=== PATIENT | female | born 1975 | race Caucasian/White ===

== ENCOUNTER 2021-02-05 09:03 | Outpatient (REF) | payer OTHER, SELFPAY ==
[2021-02-07 21:57] LABS: HPV mRNA E6/E7 rflx Not Detected (Not Detected)
== END 2021-02-05 09:04 | disposition home or self-care (01) ==
LOC: HO.LAB 09:03
PROVIDERS: Visit Provider Advanced Practice Midwife
DX: Z01.419 Encounter for gynecological examination (general) (routine) without abnormal findings (principal); Z11.51 Encounter for screening for human papillomavirus (HPV)
CPT/HCPCS: 87624; 88142

== ENCOUNTER 2021-04-23 15:44 | Outpatient (REF) | payer OTHER, SELFPAY ==
--- NOTE | ~2021-04-23 | MM_ITS ---
EXAMINATION: MM SCREENING DIGITAL BREAST TOMOSYNTHESIS, BILATERAL CLINICAL INFORMATION: Screening. Asymptomatic. The lifetime risk of breast cancer based on the Tyrer-Cuzick Model is 12%. COMPARISON: Mammography: 03/23/2019, 06/22/2016, 03/09/2014 TECHNIQUE: Digital breast tomosynthesis is performed in both the craniocaudal and mediolateral oblique views along with computer-aided detection (CAD). Synthesized 2D images are generated from the tomosynthesis. FINDINGS: The breasts are heterogeneously dense, which may obscure small masses (ACR BI-RADS breast composition Category c). The right breast parenchymal pattern is similar to prior studies. No developing density or interval mass or architectural abnormality. Neither breast shows abnormal calcifications. The axilla and skin contours are unremarkable. The left CC view has an asymmetric density mid inner quadrant without correlate on MLO, possibly summation artifact. Patient will be recalled for additional imaging. MM/MM tomosynthesis screening BI IMPRESSION: 1. Left: Asymmetric density mid inner quadrant on CC view, possibly summation artifact. 2. Right: No mammographic evidence of malignancy. ASSESSMENT: BI-RADS 0: Incomplete - Need Additional Imaging Evaluation RECOMMENDATION: 1. Additional views of the left breast (3-D spot CC, 3-D rolled CC x2). 2. Targeted ultrasound if warranted after review of the additional views. 3. Radiology department staff will contact the patient for additional imaging. This patient's information was entered into a reminder system with a target due date for their next mammogram.
== END 2021-04-23 15:45 | disposition home or self-care (01) ==
LOC: HO.MAMMO 15:44
PROVIDERS: Visit Provider Physician Assistant
DX: Z12.31 Encounter for screening mammogram for malignant neoplasm of breast (principal)
CPT/HCPCS: 77063; 77067

== ENCOUNTER 2021-05-07 14:29 | Outpatient (REF) | payer OTHER, SELFPAY ==
--- NOTE | ~2021-05-07 | MM_ITS ---
EXAMINATION: MM DIAGNOSTIC DIGITAL BREAST TOMOSYNTHESIS, LEFT CLINICAL INFORMATION: Recall from screening for asymmetric density mid inner left breast on CC view, suspected summation artifact. COMPARISON: Mammography: 04/23/2021, 03/23/2019, 06/22/2016, 03/09/2014 TECHNIQUE: Digital breast tomosynthesis is performed. 2D images are generated from the tomosynthesis. The following views are obtained: Rolled CC x2, spot CC. FINDINGS: The breasts are heterogeneously dense, which may obscure small masses (ACR BI-RADS breast composition Category c). Additional views show no persistent asymmetric density or developing density from prior studies. No architectural abnormality. No significant changes. Results are discussed with the patient at time of visit. MM/MM tomosynthesis added views L IMPRESSION: Additional views show no persistent asymmetric density or other significant changes from prior exams. ASSESSMENT: BI-RADS 1: Negative RECOMMENDATION: Routine annual mammography screening. This patient's information was entered into a reminder system with a target due date for their next mammogram.
== END 2021-05-07 14:30 | disposition home or self-care (01) ==
LOC: HO.MAMMO 14:29
PROVIDERS: Visit Provider Physician Assistant
DX: R92.8 Other abnormal and inconclusive findings on diagnostic imaging of breast (principal)
CPT/HCPCS: 77061; 77065

== ENCOUNTER 2021-12-06 19:31 | Emergency (ER) | payer OTHER, SELFPAY ==
--- NOTE | ~2021-12-06 | XR_ITS ---
EXAMINATION: XR CHEST CLINICAL INFORMATION: Pain COMPARISON: None TECHNIQUE: Frontal view of the chest was obtained. FINDINGS: No acute finding. No failure or infiltrate. There is no effusion. The cardiac silhouette is within normal limits. The hilar regions do not appear pathologically enlarged. XR/XR chest 1V IMPRESSION: No acute finding.
[2021-12-06 20:13] VITALS: BP 144/93; PULSE 80; RESP 18; TEMP 36; O2SAT 98; BMI 24.6
--- NOTE | 2021-12-06 20:20 | ECG_ITS ---
Test Reason : cp Blood Pressure : / mmHG Vent. Rate : 068 BPM Atrial Rate : 068 BPM P-R Int : 152 ms QRS Dur : 088 ms QT Int : 398 ms P-R-T Axes : 068 064 036 degrees QTc Int : 423 ms Normal sinus rhythm Normal ECG No previous ECGs available Referred By: Generic ED Physician Electronically Signed By:Neville Barrett
--- NOTE | 2021-12-06 20:23 | PC.NURSE ---
ed provider major requested pt/inr
[2021-12-06 20:38] LABS: MANUAL DIFF FLAG NO
[2021-12-06 20:50] LABS: Basophils Percent Auto 0.4 % (0-2); Eosinophils Absolute Auto 0.1 X10*3/uL (0.0-0.4); Eosinophils Percent Auto 3.1 % (0-4); Hematocrit 37.8 % (37.0-47.0); Hemoglobin 12.8 g/dl (12.0-16.0); Imm Gran Abs Auto 0.01 X10*3/uL (0.00-0.03); Imm Gran Pct Auto 0.2 % (0.0-0.4); Lymphocytes Percent Auto 44.9 % (20-40); Mean Corpuscular HGB Conc 33.9 g/dl (31.0-35.0); Mean Corpuscular Hemoglobin 31.4 pg (27.0-33.0); Mean Corpuscular Volume 92.6 fL (80.0-98.0); Mean Platelet Volume 8.9 fL (9.4-12.3); Monocytes Absolute Auto 0.3 X10*3/uL (0.1-1.2); Monocytes Percent Auto 7.2 % (2-11); Neutrophils Percent Auto 44.2 % (45-73); Platelet Count 294 X10*3/uL (160-400); Red Blood Count 4.08 X10*6/uL (4.20-5.50); Red Cell Distribution Width 11.9 % (11.0-16.0); White Blood Count 4.5 X10*3/uL (4.8-10.8)
[2021-12-06 20:58] LABS: Anion Gap 12 (12-20); Blood Urea Nitrogen 14 mg/dL (9-16); Carbon Dioxide 31 mmol/L (22-29); Chloride 102 mmol/L (96-108); Creatinine Clr Calc Pharmacy 73.8; Estimated Glomerular Filt Rate > 60; Glucose Random 87 mg/dL (60-115); Potassium 3.8 mmol/L (3.3-5.1); Prothrombin Time 10.8 SEC (9.9-13.0); Sodium 141 mmol/L (135-145)
[2021-12-06 21:05] LABS: Troponin-I High Sensitivity < 3.5 ng/L (<3.5-17.0)
[2021-12-06 21:46] VITALS: BP 141/90; PULSE 68; RESP 12; TEMP 36.7; O2SAT 96
--- NOTE | 2021-12-06 22:33 | ED.CHESTPAIN ---
HPI - Chest Pain General Chief Complaint: Chest Pain Stated Complaint: asthma Time Seen by Provider: 12/06/21 22:12 Source: patient Mode of arrival: ambulatory Limitations: no limitations History of Present Illness HPI narrative: 46-year-old female who presents emergency department for evaluation of shortness of breath, dizziness, fatigue, chest tightness. Patient states that she has been having difficulty taking a deep breath since Friday (5 days prior to evaluation). She states that she has a tightness/heaviness in her chest, the sensation is located in her anterior and posterior chest. She states that it is hard to take a deep breath. She states she does have shortness of breath and dyspnea on exertion. She has a history of asthma and she has been using her albuterol inhaler 4 to 5 times a day with no improvement of her symptoms. She states that she rarely has to use her inhaler for her asthma. She denied fever, chills, rhinorrhea, sore throat, nausea, vomiting or abdominal pain she has not noticed any swelling or pain in her lower extremities. She has not been on any long trips. She is not on control pills. The patient had a telemedicine appointment with her PCP and she was advised to go to the emergency department for evaluation of her symptoms. MD complaint: chest heaviness and chest discomfort Pertinent past history: asthma Onset (ago): day(s) (5) Timing of current episode: constant Prior episodes: No Onset: other (Gradual onset) Pain location: posterior (And anterior chest) Pain radiation: none Severity: moderate Quality: tightness, heaviness and other (Difficulty taking a deep breath) Relieving factors: nothing Exacerbating factors: nothing Associated symptoms: dyspnea Treatment prior to arrival: none Related Data On Oral Contraceptives: No Home Medications Medication Instructions Recorded Confirmed nortriptyline 10 mg capsule 10 mg PO BID 02/05/21 sumatriptan succinate 50 mg tablet mg PO 02/05/21 Previous Rx's Medication Instructions Recorded albuterol sulfate 90 mcg/actuation 2 puff INHALATION Q4-6H PRN #8.5 g 12/06/21 aerosol inhaler (ProAir HFA) prednisone 20 mg tablet 60 mg PO DAILY 5 Days #15 tab 12/06/21 Allergies Allergy/AdvReac Type Severity Reaction Status Date / Time No Known Allergies Allergy Mild UNKNOWN Verified 12/06/21 20:13 Review of Systems Review of Systems: Yes all other systems are reviewed and are negative FOR[facility]LY [facility] LAT[facility] Past Medical History FOR[facility], LAT[facility] Narrative: Past medical history: Reviewed below, patient also 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 She denies tobacco use. She drinks alcohol occasionally on weekends. She denies drug use. Medical History Abnormal Pap smear of cervix Asthma COVID-19 Migraine Surgical History H/O foot surgery Family History Family History Maternal Aunt Pancreatic cancer Throat cancer Father Prostate CA Paternal Grandfather Colon cancer Social History Social History Alcohol intake: current Alcohol intake frequency: a few times a week Advance Directives: No Advance Directives Information Provided: Yes Patient : No Sexual orientation: Lesbian/Portillo/Homosexual Physical Exam Vital Signs: Vital Signs: Last Vital Signs Temp 98.1 F 12/06/21 21:46 Pulse 68 12/06/21 21:46 Resp 12 12/06/21 21:46 BP 141/90 H 12/06/21 21:46 Pulse Ox 96 12/06/21 21:46 BMI result Body Mass Index 24.6 Const: General: cooperative and no acute distress Orientation/consciousness: oriented to person and oriented to place Limitations: no limitations HENMT: Head: Yes normal to inspection, Yes normocephalic and Yes atraumatic Ears: external ears normal General nose exam: Normal external nose present Face and sinus: Yes normal facial exam Mouth: Normal oral and palatal mucosa present Throat: Yes posterior oropharynx normal Eyes: General: appearance normal, both eyes and all related structures Pupils: Equal, round and reactive pupils present Neck: Neck: Yes normal visual inspection, Yes no lymphadenopathy, Yes trachea midline and Yes supple Chest: Chest palpation & inspection: normal inspection of the chest and normal palpation of entire chest wall Resp: Effort & Inspection: normal respiratory effort and able to speak in complete sentences Auscultation: clear to auscultation bilaterally Cardio: Rate: regular rate Rhythm: regular rhythm Heart sounds: S1 normal heart sound present, S2 normal heart sound present and no murmurs GI: Inspection: Yes normal to inspection Palpation (GI): Soft to palpation, nontender and no guarding Auscultation: normal bowel sounds : General: Yes no CVA tenderness Back/Spine/Pelvis: Back: no CVA tenderness Skin: General skin exam: no rashes or lesions noted Neuro: General: oriented to person and oriented to place Cranial nerves: Yes CN's II-XII intact bilaterally and Yes Equal, round and reactive pupils present Cognition (Neuro): normal cognition Motor exam (neuro): 5/5 motor strength present throughout Extrem: General: Yes normal to inspection Psych: Appearance: grossly normal Speech and movement: Normal speech and movement present Affect: normal affect Attitude: cooperative Thought process: Normal thought process present Thought content: Normal thought content present Course Course Course Narrative: 46-year-old female who presents emergency department for evaluation difficulty taking deep breath, chest tightness and chest heaviness with dyspnea on exertion shortness of breath. Patient has had the symptoms for approximately 5 days. The patient does have history of asthma. The patient's vital signs revealed an elevated blood pressure of 144/93 and 141/90 and otherwise her vital signs were normal. Physical examination was unremarkable. Laboratory evaluation revealed a low white blood count of 4500, elevated bicarb of 31. Patient's 12 EKG was unremarkable. Her troponin was below detectable limits. Patient's chest x-ray was negative. PT/INR were normal. D-dimer below detectable limits. Given the negative workup, the patient's symptoms are most likely secondary to an asthma flare up with a large inflammatory component patient was given prednisone 60 mg orally and albuterol inhaler 4 puffs here in the emergency department prior to discharge. She was started on a pulse dose of prednisone 60 mg once a day for 5 days and given a prescription for albuterol inhaler 2 puffs every 4-6 hours. She was given printed and verbal instructions and discharged home. MDM - Chest Pain Lab Data Result diagrams: 12/06/21 20:33 12/06/21 20:33 Labs: Lab Results 12/06/21 12/06/21 12/06/21 Range/Units 20:33 20:33 20:33 WBC 4.5 L (4.8-10.8) X10*3/uL RBC 4.08 L (4.20-5.50) X10*6/uL Hgb 12.8 (12.0-16.0) g/dl Hct 37.8 (37.0-47.0) % MCV 92.6 (80.0-98.0) fL MCH 31.4 (27.0-33.0) pg MCHC 33.9 (31.0-35.0) g/dl RDW 11.9 (11.0-16.0) % Plt Count 294 (160-400) X10*3/uL MPV 8.9 L (9.4-12.3) fL Immature Gran % (Auto) 0.2 (0.0-0.4) % Neut % (Auto) 44.2 L (45-73) % Lymph % (Auto) 44.9 H (20-40) % [place] % (Auto) 7.2 (2-11) % Eos % (Auto) 3.1 (0-4) % Baso % (Auto) 0.4 (0-2) % Lymph # (Auto) 2.0 (1.2-4.9) X10*3/uL [place] # (Auto) 0.3 (0.1-1.2) X10*3/uL Eos # (Auto) 0.1 (0.0-0.4) X10*3/uL Baso # (Auto) 0.0 (0.0-0.2) X10*3/uL Abs Immat Gran (auto) 0.01 (0.00-0.03) X10*3/uL Absolute Neuts (auto) 2.0 (2.0-8.3) x10*3/uL Absolute Nucleated RBC 0.000 (0.0-0.012) X10*3/uL Nucleated RBC % (auto) 0.0 (0.0-0.2) /100WBC PT (9.9-13.0) SEC INR (0.9-1.1) D-Dimer High Sensitivty NG/ML Sodium 141 (135-145) mmol/L Potassium 3.8 (3.3-5.1) mmol/L Chloride 102 (96-108) mmol/L Carbon Dioxide 31 H (22-29) mmol/L Anion Gap 12 (12-20) BUN 14 (9-16) mg/dL Creatinine 0.77 (0.5-1.4) mg/dL Estim Creat Clear Calc 73.8 Estimated GFR > 60 Random Glucose 87 (60-115) mg/dL Calcium 10.0 (8.4-10.2) mg/dL Troponin I High Sens < 3.5 (<3.5-17.0) ng/L 12/06/21 Range/Units 20:33 WBC (4.8-10.8) X10*3/uL RBC (4.20-5.50) X10*6/uL Hgb (12.0-16.0) g/dl Hct (37.0-47.0) % MCV (80.0-98.0) fL MCH (27.0-33.0) pg MCHC (31.0-35.0) g/dl RDW (11.0-16.0) % Plt Count (160-400) X10*3/uL MPV (9.4-12.3) fL Immature Gran % (Auto) (0.0-0.4) % Neut % (Auto) (45-73) % Lymph % (Auto) (20-40) % [place] % (Auto) (2-11) % Eos % (Auto) (0-4) % Baso % (Auto) (0-2) % Lymph # (Auto) (1.2-4.9) X10*3/uL [place] # (Auto) (0.1-1.2) X10*3/uL Eos # (Auto) (0.0-0.4) X10*3/uL Baso # (Auto) (0.0-0.2) X10*3/uL Abs Immat Gran (auto) (0.00-0.03) X10*3/uL Absolute Neuts (auto) (2.0-8.3) x10*3/uL Absolute Nucleated RBC (0.0-0.012) X10*3/uL Nucleated RBC % (auto) (0.0-0.2) /100WBC PT 10.8 (9.9-13.0) SEC INR 1.0 (0.9-1.1) D-Dimer High Sensitivty < 150 NG/ML Sodium (135-145) mmol/L Potassium (3.3-5.1) mmol/L Chloride (96-108) mmol/L Carbon Dioxide (22-29) mmol/L Anion Gap (12-20) BUN (9-16) mg/dL Creatinine (0.5-1.4) mg/dL Estim Creat Clear Calc Estimated GFR Random Glucose (60-115) mg/dL Calcium (8.4-10.2) mg/dL Troponin I High Sens (<3.5-17.0) ng/L ECG Data ECG #1: Interpretation: 2035: Normal sinus rhythm rate of 68, normal NH interval, QRS duration and QTC interval, inverted T-wave in lead 3, no ST segment elevation, no ST segment depression, no PACs, no PVCs, this is a normal EKG. Discharge Plan Discharge Clinical Impression: Chest pain Asthma exacerbation Qualifiers: Asthma severity: moderate Asthma persistence: unspecified Qualified Code(s): J45.901 - Unspecified asthma with (acute) exacerbation Patient Disposition: Home, Self-Care Instructions: Asthma (ED) Additional Instructions: Your chest x-ray was normal. Your 12 EKG was unremarkable. Your laboratory evaluation was normal. Your high sensitivity troponin I (marker for heart damage/heart attack) was below detectable limits, which is reassuring. Your D-dimer (marker for making too many blood clots) was below detectable limits, which is reassuring as well. The rest of your blood work was unremarkable as well. Follow-up with your doctor in 2 days. Please return to the emergency department if your symptoms get worse or if you develop any symptoms that are concerning to you. Prescriptions: New prednisone 20 mg tablet 60 mg PO DAILY 5 Days Qty: 15 0RF albuterol sulfate [ProAir HFA] 90 mcg/actuation HFA aerosol inhaler 2 puff inhalation Q4-6H PRN (Reason: shortness of breath or wheezing) Qty: 8.5 0RF No Action sumatriptan succinate 50 mg tablet PO 0RF nortriptyline 10 mg capsule 10 mg PO BID 0RF Interventions: ED Discharge Assessment Last Done: 12/06/21 23:06 Discharge Date/Time: 12/06/21 23:07
[2021-12-06 22:46] LABS: D Dimer High Sensitivity < 150 NG/ML
[2021-12-06] MEDS: predniSONE 20 MG TABLET 60 MG PO (22:58)
[2021-12-06] MEDS: Albuterol Sulfate 90 MCG 8 GM INHALER 4 PUFF INHALE (22:58)
== END 2021-12-06 23:07 | disposition home or self-care (01) ==
PROVIDERS: Emergency Provider Emergency Medicine Emergency Medical Services
DX: R07.9 Chest pain, unspecified (principal); J45.901 Unspecified asthma with (acute) exacerbation
CPT/HCPCS: 36415; 71045; 80048; 84484; 85025; 85379; 85610; 93005; 99284

== ENCOUNTER 2023-07-05 07:37 | Outpatient (REF) | payer OTHER, SELFPAY ==
--- NOTE | ~2023-07-05 | MM_ITS ---
EXAMINATION: MM SCREENING DIGITAL BREAST TOMOSYNTHESIS, BILATERAL CLINICAL INFORMATION: Screening. Asymptomatic. COMPARISON: Mammography: This study is compared with prior exams dating back to 2016. TECHNIQUE: Digital breast tomosynthesis is performed in both the craniocaudal and mediolateral oblique views along with computer-aided detection (CAD). Synthesized 2D images are generated from the tomosynthesis. FINDINGS: The breasts are extremely dense, which lowers the sensitivity of mammography (ACR BI-RADS breast composition Category d). There are no significant masses, abnormal calcifications, or other abnormalities. MM/MM tomosynthesis screening BI IMPRESSION: No mammographic evidence of malignancy. ASSESSMENT: BI-RADS BI-RADS 1 - Negative RECOMMENDATION: Routine annual mammography screening. 1 year F/U This examination should not preclude the clinical evaluation of a suspicious palpable abnormality. This patient's information was entered into a reminder system with a target due date for their next mammogram.
== END 2023-07-05 07:38 | disposition home or self-care (01) ==
LOC: HO.MAMMO 07:37
PROVIDERS: PCP Family Medicine; Visit Provider Physician Assistant
DX: Z12.31 Encounter for screening mammogram for malignant neoplasm of breast (principal)
CPT/HCPCS: 77063; 77067

== ENCOUNTER → 2023-07-05 07:45 | Outpatient (BNV) | payer OTHER, SELFPAY | PROVIDERS: PCP Family Medicine; Visit Provider Radiology Diagnostic Radiology | DX: Z12.31 Encounter for screening mammogram for malignant neoplasm of breast (principal) | CPT/HCPCS: 77063; 77067 ==

== ENCOUNTER 2023-12-08 09:19 | Emergency (ER) | payer OTHER, SELFPAY ==
[2023-12-08 10:04] VITALS: BP 138/94; PULSE 94; RESP 19; TEMP 36.6; O2SAT 98; BMI 24.0
[2023-12-08 11:09] LABS: Influenza A PCR NEGATIVE (Negative); Influenza B PCR NEGATIVE (Negative); Resp Syncy Virus RNA Qual PCR NEGATIVE (Negative); SARS COV2 PCR INHOUSE NEGATIVE (Negative)
[2023-12-08 12:57] VITALS: BP 150/86; PULSE 88; RESP 18; O2SAT 99
--- NOTE | 2023-12-08 13:05 | ED.HA ---
HPI - Headache General Chief Complaint: Headache Stated Complaint: Migraine Time Seen by Provider: 12/08/23 12:35 Source: patient Mode of arrival: ambulatory Limitations: no limitations History of Present Illness HPI Narrative: 48 yo female with PMH of neck pain s/p fusion who receives epidural injections prior migraines with hospital visit in past for worse migraine than today. She is not on thinners. She notes has had URI since 11/15 with now sinus pressure and congestion has been on Rx cough medications but also OTC medications. She now has worsening frontal pain and n/v cannot manage at home. No fevers. She notes her neck went into spasm. MD elicited complaint: migraine Pertinent past history: migraines Onset (ago): day(s) (3) Onset description: gradually Location: frontal and band-like Severity: severe Quality & Timing: throbbing Exacerbating factors: movement of head/neck, light and noise Relieving factors: nothing Context: recent URI Associated symptoms: nausea, vomiting, photophobia and other (neck spasms) Treatments prior to arrival: other (tried OTC and sumatriptam over the weekend no relief) Related Data Home Medications Medication Instructions Recorded Confirmed nortriptyline 10 mg capsule 10 mg PO BID 02/05/21 sumatriptan succinate 50 mg tablet mg PO 02/05/21 Previous Rx's Medication Instructions Recorded albuterol sulfate 90 mcg/actuation 2 puff inhalation Q4-6H PRN 12/06/21 aerosol inhaler (ProAir HFA) shortness of breath or wheezing #8.5 grams prednisone 20 mg tablet 60 mg (3 x 20 mg) PO DAILY 5 days 12/06/21 #15 tabs amoxicillin 875 mg-potassium 1 tab PO BID #14 tabs 12/08/23 clavulanate 125 mg tablet Allergies Allergy/AdvReac Type Severity Reaction Status Date / Time No Known Allergies Allergy Mild UNKNOWN Verified 12/08/23 10:04 Review of Systems Review of Systems: Constitutional : No Fever, No Chills, No Fatigue ENT/Mouth : No sore throat, No Rhinorrhea Eyes: No Eye Pain, No Swelling, No Redness, pos sinus pain Cardiovascular : No Chest Pain, No SOB, No Dyspnea on Exertion Respiratory : No Cough, No Sputum Gastrointestinal : pos Nausea, pos Vomiting, No Diarrhea, No abdominal Pain Genitourinary : No Dysuria, No Urinary Frequency, No Hematuria, Musculoskeletal : No joint pain, No Myalgias, No Joint Swelling Skin : No Skin Lesions, No rash Neuro : No Weakness, No Numbness, No Dizziness, positive Headache Psych : No Anxiety/Panic, No Depression Heme/Lymph: No Bruising, No Bleeding,No Lymphadenopathy Endocrine : No Polyuria, No Polydipsia All other systems reviewed and are negative PMFSH Past Medical History Attestation statement: The following information was validated with the patient. Source: old records reviewed Medical History Migraine COVID-19 Asthma Abnormal Pap smear of cervix Surgical History H/O foot surgery Family History Family History Maternal Aunt Pancreatic cancer Throat cancer Father Prostate CA Paternal Grandfather Colon cancer Social History Social History Alcohol intake: current Alcohol intake frequency: a few times a week Advance Directives: No Sexual orientation: Lesbian/[place]/Homosexual Physical Exam Vital Signs: Vital Signs: Last Vital Signs Temp 98 F 12/08/23 10:04 Pulse 88 12/08/23 12:57 Resp 18 12/08/23 12:57 BP 150/86 H 12/08/23 12:57 Pulse Ox 99 12/08/23 12:57 O2 Del Method Room Air 12/08/23 12:57 BMI result Body Mass Index 24.0 Appearance: Alert. Oriented X3. No acute distress. Eyes: Pupils equal, round and reactive to light. ENT: Pharynx normal. TMs normal bilaterally, bilateral frontal and max sinus ttp Neck: Normal inspection. Neck supple. no meningeal signs, bilateral trapezius ttp CVS: Normal heart rate and rhythm. Pulses normal. Respiratory: No respiratory distress. Breath sounds normal. Abdomen: Soft and nontender. Skin: Skin warm and dry. Normal skin color. Normal skin turgor. Extremities: No lower extremity edema. No calf ttp Neuro: Oriented X 3. No motor deficit. No sensory deficit. Course Course Course Narrative: pain is improving but still has some pain - IV morphine ordered Reevaluation(s) Reevaluation #1: pain much improved with IV morphine Medications Administered Discontinued Medications Generic Name Dose Route Start Last Admin Trade Name Jaz PRN Reason Stop Dose Admin Dexamethasone Sodium Phosphate 6 mg 12/08/23 13:02 12/08/23 14:12 Dexamethasone Sod Phosphate 4 Mg/Ml Vial IVPUSH 12/08/23 13:03 6 mg ONCE ONE Administration Diphenhydramine HCl 25 mg 12/08/23 13:02 12/08/23 14:13 Diphenhydramine Hcl 50 Mg/Ml Vial IVPUSH 12/08/23 13:03 25 mg ONCE ONE Administration Sodium Chloride 1,000 mls @ 999 mls/hr 12/08/23 13:15 12/08/23 15:05 Ns IV 12/08/23 14:15 Infused .Q1H1M DUGLAS Infusion Ketorolac Tromethamine 15 mg 12/08/23 13:02 12/08/23 14:13 Ketorolac Tromethamine 15 Mg/Ml Vial IVPUSH 12/08/23 13:03 15 mg ONCE ONE Administration Metoclopramide HCl 10 mg 12/08/23 13:02 12/08/23 14:12 Metoclopramide Hcl 10 Mg/2 Ml Vial IVPUSH 12/08/23 13:03 10 mg ONCE ONE Administration Morphine Sulfate 4 mg 12/08/23 14:44 12/08/23 15:03 Morphine Sulfate 4 Mg/Ml Cartridge IVPUSH 12/08/23 14:45 4 mg ONCE ONE Administration Protocol Medical Decision Making Medical Decision Making MDM Narrative: 48 yo female with PMH of headaches, neck spasms and pain at this time has URI symptoms and likely sinusitis will need swab and supportive migraine cocktail - IV toradol, reglan, benadryl and dexamethasone ordered. She is not on thinners. She has no meningeal signs. She is afebrile. She is not toxic. She has nonfocal neuro exam. Suspect sinusitis causing migraine vs tension headache Differential Diagnosis Differential Diagnoses: The differential diagnosis associated with the presentation includes migraine, tension, sinusitis Admission/Observation Consideration of admission/observation: Escalation of care including admission/observation considered feels better stable for DC Lab Data MDM Lab Attestation statement: I reviewed the patient's lab results. Labs: Lab Results 12/08/23 Range/Units 10:16 Influenza Type A (PCR) NEGATIVE (Negative) Influenza Type B (PCR) NEGATIVE (Negative) RSV RNA Qual (PCR) NEGATIVE (Negative) SARS-CoV-2 RNA (RT-PCR) NEGATIVE (Negative) External Record Review External record reviewed: Inpatient record Prescription Management I considered prescription management with: Antibiotic and Other Critical Care Time Critical Care Time Critical Care Time: Yes Total Critical Care Time: 35 Attestation: pain improved with IV morphine I attest to this time spent taking care of the patient Discharge Plan Discharge Clinical Impression: Sinusitis Qualifiers: Sinusitis location: frontal Chronicity: acute Recurrence: non-recurrent Qualified Code(s): J01.10 - Acute frontal sinusitis, unspecified Migraine Qualifiers: Migraine type: unspecified Status migrainosus presence: without status migrainosus Intractability: not intractable Qualified Code(s): G43.909 - Migraine, unspecified, not intractable, without status migrainosus Patient Disposition: Home, Self-Care Instructions: Sinusitis (ED), Migraine Headache (ED) Additional Instructions: negative for flu covid and rsv return for worsening symptoms concerns, fevers, confusion or any other concerns On amoxicillin-clavulanate, softer bowel movements are to be expected. Call your provider if you move your bowels more than 4 times a day, your bowel movements are almost all liquid, or you get a rash.? Prescriptions: New amoxicillin-pot clavulanate 875-125 mg tablet 1 tab PO BID Qty: 14 0RF No Action prednisone 20 mg tablet 60 mg PO DAILY 5 Days Qty: 15 0RF albuterol sulfate [ProAir HFA] 90 mcg/actuation HFA aerosol inhaler 2 puff inhalation Q4-6H PRN (Reason: shortness of breath or wheezing) Qty: 8.5 0RF sumatriptan succinate 50 mg tablet PO nortriptyline 10 mg capsule 10 mg PO BID Stand Alone Forms: Work/School Release
[2023-12-08] MEDS: dexAMETHasone sod phosphate 4 MG/ML VIAL 6 MG IVPUSH (14:12)
[2023-12-08] MEDS: 0.9 % Sodium Chloride 1,000 ML 999 ML IV (14:12)
[2023-12-08] MEDS: Metoclopramide HCl 10 MG/2 ML VIAL IVPUSH (14:12)
[2023-12-08] MEDS: Ketorolac Tromethamine 15 MG/ML VIAL IVPUSH (14:13)
[2023-12-08] MEDS: diphenhydrAMINE HCL 50 MG/ML VIAL 25 MG IVPUSH (14:13)
[2023-12-08] MEDS: Morphine Sulfate 4 MG/ML CARTRIDGE IVPUSH (15:03)
[2023-12-08 15:41] VITALS: BP 117/76; PULSE 80; RESP 14; TEMP 36.7; O2SAT 95
--- NOTE | 2023-12-08 15:54 | PC.NURSE ---
20g iv was inserted in the rac, meds and fluid were given as ordered and documented. iv removed by this senior writer prior to discharge. gait steady on discharge.
== END 2023-12-08 15:45 | disposition home or self-care (01) ==
PROVIDERS: Emergency Provider Emergency Medicine; PCP Family Medicine
DX: G43.909 Migraine, unspecified, not intractable, without status migrainosus (principal); J01.10 Acute frontal sinusitis, unspecified; J45.909 Unspecified asthma, uncomplicated; Z11.52 Encounter for screening for COVID-19; Z20.828 Contact with and (suspected) exposure to other viral communicable diseases
CPT/HCPCS: 0241U; 96361; 96374; 96375; 99284; J1100; J1200; J1885; J2270; J2765

== ENCOUNTER 2024-11-26 09:55 | Outpatient (AMB) | payer OTHER, SELFPAY ==
[2024-11-26 09:57] VITALS: BP 110/68; BMI 23.0
--- NOTE | 2024-11-26 09:57 | A.OFFVIS_ITS ---
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 Front End Drupal Developer Required: No Front End Drupal Developer Services: Front End Drupal Developer Present Information Interpreted: clinical only Clinical Research Analyst: Clinical Research Analyst Present Allergies No Known Allergies Allergy (Mild, Verified 11/26/24 10:00) UNKNOWN Medication List - Last Reconciled 11/26/24 by Kerrie Easley CNM albuterol sulfate 90 mcg/actuation (ProAir HFA) 2 puffs inhalation Q4-6H PRN celecoxib (Celebrex) 200 mg PO DAILY Post menopausal: Yes HPI HPI 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 Many years ago, 2015 she had an abnormal Pap smear with ASCUS her last Pap smear was negative with negative HPV in 2020. She has sexually active with her longstanding same sex partner has no concerns at all about infection or STDs or any anything. She sees her primary care provider at [facility] in [place] she had some pain in her right breast and so she has a mammogram scheduled in 20 minutes. She keeps herself healthy with exercise and lifting weights and running. She has not had a period in years. Few years ago she was being seen [facility] for Lyme disease and was given HRT for menopausal symptoms and she did not like how she felt so she stopped them. Her sister was diagnosed with ovarian cancer and does gone through chemo in many other forms treatment, and did have a recurrence, and lungs spread as well, as well, and is currently disease free. She says they all got BRCA testing it was negative she is not having any symptoms of bloating or sense of fullness or anything. She would be interested in a pelvic ultrasound just to check her ovaries. [facility] Medical History (Updated 11/26/24 @ 10:34 by Kerrie Easlye CNM) Migraine COVID-19 Asthma Abnormal Pap smear of cervix Surgical History H/O foot surgery Family History Maternal Aunt Pancreatic cancer Throat cancer Father Prostate CA Paternal Grandfather Colon cancer Social History (Reviewed 11/26/24 @ 10:01 by Allie Crawford CMAHuseyin Alcohol intake: current Alcohol intake frequency: a few times a week Sexual orientation: Lesbian/Portillo/Homosexual Female Reproductive History Menstrual Age of Menarche: 14 control method: none Total pregnancies: 2 Full term: 2 Date of last pap smear: 02/06/21 (neg.) History of abnormal pap smear: Yes (2016 ASCUS) Physical Exam Vital Signs: Last Vital Signs BP 110/68 11/26/24 09:57 BMI result Body Mass Index 23.0 Const General: healthy appearing, comfortable, no acute distress, well developed and alert Nutritional Appearance: average body habitus Orientation/consciousness: patient oriented x3 Limitations: no limitations HEENT Head: Yes normocephalic Neck Neck: Yes normal visual inspection Chest Other: Breasts are small no masses palpated bilaterally no skin dimpling no peau d'orange. Chest palpation & inspection: normal inspection of the chest Breast/axilla inspection: normal inspection of the breasts and normal inspection of the axillae Breast/axilla palpation: normal palpation of the breasts and normal palpation of the axillae Resp Effort & Inspection: normal respiratory effort GI Inspection: Yes normal to inspection, No Abdominal wall edema and No distended Palpation (GI): Soft to palpation and nontender Other: Normal external exam normal atrophic jamal menopausal changes vagina is pink and moist cervix multiparous pink smooth status post LEEP cervix long close thick mobile nontender adnexa not enlarged nontender fair tone with Kegel. General: Yes bladder normal to palpation External Female Exam: normal external appearance and normal appearance of the urethra Speculum Exam - Vagina: normal appearance of the vagina, normal palpation and normal vaginal discharge Speculum Exam - Cervix: normal appearance of the cervix, normal palpation and nontender Bimanual exam- vagina & uterus: normal bimanual exam, normal palpation, uterine size normal, bladder normal to palpation, consistency normal, normal palpation, uterine mobility normal, uterine shape normal, No Cervical tenderness present, non-tender and no cervical motion tenderness Bimanual Exam- Adnexa, other: normal adnexae, no masses, normal and No adnexal tenderness Neuro General: patient oriented x3 Results Reviewed Results Reviewed: Name: Ludy Finn Aaron Age/Sex: 46/F Attending: Dennise Lewis CNM : 1975 Submitted by: Dennise Lewis [facility] Copies to: MR #: [id number] Status: DEP REF Collected: 02/05/21 Location: .LAB Received: 02/06/21 Interpretation Satisfactory for evaluation. Negative for intraepithelial lesion or malignancy. HPV mRNA E6/E7: NOT DETECTED This assay detects E6/E7 viral messenger RNA (mRNA) from 14 high-risk HPV types (16, 18, 31, 33, 35, 39, 45, 51, 52, 56, 58, 59, 66, 68) HPV testing performed by [facility], [place], [place]. See reference laboratory portion of the EMR for entire report. Clinical Information LMP: 12/28/20 Previous PAP test: 2019, abnormal Other history: 05/27/2016, ASCUS Material Received ThinPrep Cervical Electronically Signed By: Starla Tadeo 02/12/21 [id number] The Pap Test is a screening procedure with the inherent possibility of both false negative and false positive results. Results should be interpreted in the context of historic and current clinical findings. Reliability of the Pap Test is enhanced by performing the test on a regular repetitive basis. Patient: Ludy Finn Age/Sex: 46/F MR#: [id number] Page 1 of 1 Assessment & Plan Assessment & Plan (1) Encounter for annual routine gynecological examination: Code(s): Z01.419 - Encounter for gynecological examination (general) (routine) without abnormal findings Category: Medical (2) Perimenopause: Code(s): N95.1 - Menopausal and female climacteric states Category: Medical (3) Family history of malignant neoplasm of ovary in first degree relative: Comment: Her sister, status post treatment ,and recurrence, currently disease free... BRCA negative.; offered ultrasound for screening... Code(s): Z80.41 - Family history of malignant neoplasm of ovary Category: Medical (4) Breast cancer screening: Comment: Is getting mammogram today ordered by [facility] for breast pain. Code(s): Z12.39 - Encounter for other screening for malignant neoplasm of breast Category: Medical (5) Abnormal Pap smear of cervix: Comment: 05/27/16 ascus, Pap negative with negative HPV 2020. 11/26/2024 Pap done. Code(s): R87.619 - Unspecified abnormal cytological findings in specimens from cervix uteri Category: Medical Plan -----Discussed in this visit the following: healthy balanced diet, regular and consistent exercise, getting recommended health screens, doing the best she can for her particular health concerns, kegel exercises, pap smear screening and followup recommendations, mammography screening and SBE, normal changes in cycles in her life stage--- . Pap with HPV code testing was done patient had no need for any cultures are screening for any infections. She is doing fine jamal menopausal only without the hormones and feels better than when she had tried them. She sees her primary care regularly and is on her way to the hospital for a mammogram to check for pain that she had in her right breast she is beginning to suspected was nothing more than a pulled muscle but she is getting it checked out. She keeps herself very healthy she and her sisters are all very close. Discussed her sister's diagnosis ovarian cancer and in fact hers symptom was that she looked and felt bloated. I offered her screening ultrasound just to assess given this she is very happy to check this out discussed that there is no real we perfect screening test for ovarian cancer. 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 They are doing well age 14 and 16. 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 Coding Level of Care Code New Pt Prev Care 40-64y(97296) Diagnoses Encounter for annual routine gynecological examination Z01.419 Perimenopause N95.1 Family history of malignant neoplasm of ovary in first degree relative Z80.41 Breast cancer screening Z12.39 Abnormal Pap smear of cervix R87.619
--- OUTSIDE RECORDS SUMMARY | 2024-11-26 10:35 | XMS_ITS | Data Portability ---
Author Organization [facility], [address] Address [address] [place] [address] Assessment No assessment recorded. Plan of Treatment Reminders Order Date Submit Date Provider Last Modified By Organization Details Last Modified Time Details Appointments None record ed. Lab None record ed. Referral None record ed. Procedures None record ed. Surgeries None record ed. Imaging None record ed. Medication Orders None record ed. Patient TargetsNo targets recorded. Patient InstructionsNo instructions recorded. Reason for Referral None Reported. Medical Equipment None Reported. Vitals None Recorded Social History None recorded. Functional Status None recorded. Mental Status None recorded. Family History Nothing Reported. Medical History No medical history recorded. Gynecological HistoryNo gynecological history recorded. Obstetrics History GPAL:G 0 P 0 0 0 0 Past Encounters Encounter ID Performer Location Encounter Start Date Encounter Closed Date Diagnosis/Indication Diagnosis SNOMED-CT Code Diagnosis ICD10 Code Diagnosis Note [id number] [address] [place] [phone] 05/10/2018 19:56:08 05/10/2018 20:12:15 [id number] [address] [place] [phone] 0 05/16/2022 15:33:24 05/16/2022 16:47:28 [id number] [address] [place] [address] 11/03/2017 09:00:18 11/03/2017 09:34:03 [id number] [address] [place] [phone] 12/30/2016 08:53:56 12/30/2016 09:38:57 [id number] [address] [facility] [address] [place] [address] 01/19/2017 14:06:18 01/19/2017 14:56:20 Health Concerns Section Related Observation LastModified by Organization Taryn varela LastModified Time None Recorded Concern Status LastModified by Organization Details LastModified Time None Recorded Advance Directives Directive None Recorded Payers Encounter Date Sequence Insurance Name Policy Number Policy Hurtado Covered Member ID Hurtado Member ID Guarantor Name 05/16/2022 1 [facility] [id number] Ludy Finn [id number] Ludy Finn OBGyn Episode No OBEpisode recorded.
== END 2024-11-26 10:23 | disposition home or self-care (01) ==
PROVIDERS: PCP Family Medicine; Visit Provider Advanced Practice Midwife
DX: Z01.419 Encounter for gynecological examination (general) (routine) without abnormal findings (principal); N95.1 Menopausal and female climacteric states; Z80.41 Family history of malignant neoplasm of ovary
CPT/HCPCS: 99386; 99459

== ENCOUNTER → 2024-11-26 10:15 | Outpatient (BNV) | payer OTHER, SELFPAY | PROVIDERS: PCP Physician Assistant; Visit Provider Internal Medicine | DX: N64.4 Mastodynia (principal) | CPT/HCPCS: 76642; 77062; 77066 ==

== ENCOUNTER 2024-11-26 10:31 | Outpatient (REF) | payer OTHER, SELFPAY ==
--- NOTE | ~2024-11-26 | MM_ITS ---
EXAMINATION: MM DIAGNOSTIC DIGITAL BREAST TOMOSYNTHESIS, BILATERAL Right Limited ultrasound. CLINICAL INFORMATION: Right breast/axilla pain. COMPARISON: Mammography: Comparison is made with relevant prior exams. TECHNIQUE: Digital breast mammography with tomosynthesis is performed in both the craniocaudal and mediolateral oblique views along with computer-aided detection (CAD). Limited right breast ultrasound. FINDINGS: The breasts are extremely dense, which lowers the sensitivity of mammography (ACR BI-RADS breast composition Category d). There are no significant masses, abnormal calcifications, or other abnormalities. Targeted color Doppler ultrasound scanning in the area of the patient's right pain in the axilla and upper outer quadrant demonstrates normal fibroglandular breast tissue. Results are provided to the patient at time of visit by the technologist. MM/MM tomosynthesis diagnostic BI IMPRESSION: No mammographic or sonographic abnormality to account for the patient's right axillary and upper outer quadrant breast pain. Recommend clinical evaluation and follow-up. ASSESSMENT: BI-RADS BI-RADS 1 - Negative RECOMMENDATION: 1 year F/U This patient's information was entered into a reminder system with a target due date for their next mammogram. Electronically signed by: Carlyn Vuong DO 11/26/2024 11:23 AM YUDITH
--- OUTSIDE RECORDS SUMMARY | 2024-11-26 11:26 | XMS_ITS | Continuity of Care Document ---
Author Organization [facility] Address [address] [place], [place] Phone [phone] Care Team Providers Care Waxer Operator Name Role Phone Marcell Ragland Care Team Information Receiv er Unavailable ANAID ROSALES M.D. Care Team Information Rec eiver Unavailable Marcell Ragland Primary Care Physician Unava ilable Social History Type Date Description Comments Sex Unknown Allergies and adverse reactions Active Allergies Criticality Reaction Severity Comments Date Seasonal Unable to assess criticality 09/05/2016 Medications Active Medications SIG Qnty Indications Ordering Provider Date Ipeidqgvo206ds Capsules Unknown Vbbfwqukye4hl Tablets Unknown Albuterol Sulfate USR403(90Base) mcg/Act Aerosol Inhale 2 Puffs By Mouth Every 4 To 6 Hours as Needed For Shortness Of Breath Or Unknown History Medications Iwtdpweyam14qt Tablets 5 Tablets By Mout h X 2 Days Then Decrease By 1 Every 2 Days Until Completed Unknown - 05/20/2022 Wkkcsbwcnvgyj409zt Tablets Take 1 Tablet By Mouth 3 Times A Day as Needed For Muscle Spasms Unknown - 10/30/2023 Sumatriptan Zklmhsuxe41pi Tablets Take 1 Tablet By Mouth Every Day as Needed Unknown - 10/30/2023 Pxlgywuuh197an Tablets Take 1 Tablet By Mouth 3 Times A Day as Needed With Food Unknown - 10/30/2023 Hmagvjjl1lk Tablets Unknown - 10/30/2023 Citalopram Veoyhriadclh35sy Tablets 1 by mouth every day 90tabs Unknown - 10/30/2023 Sjzdlplgy759ct Tablets Take 1 Tablet By Mouth 3 Times A Day Unknown - 09/05/2016 Tizanidine HCL2mg Tablets Take 1 To 2 Ta blets By Mouth Every 8 Hours as Needed Unknown - 09/05/2016 Cyclobenzaprine HCL5mg Tablets Take 1 Tablet By Mouth 3 Times A Day as Needed Unknown - 09/05/2016 Chlorhexidine Gluconate0.12% Solution Rinse 1-2 Times Per Day Unknown - 10/08/2017 Fluticasone Spxshjcoke12utc/Act Suspension Take 1 [place] In Each Nostril Every Day Unknown - 10/30/2023 Acetaminophen-Codeine #3300-30mg Tablets Take 1 Tablet Every 8 Hours as Needed For Pain May Cause Constipation Unknown - 10/08/2017 Dhwoouknph393an Capsules prn Unkno wn - 05/20/2022 Iophen X-PP006-45zn/5ML Liquid Unknown - 09/05/2016 Kctfvrunkhl934rd Capsules Unkn own - 09/05/2016 Jgruabliqk325ty Tablets Unknow n - 10/30/2023
== END 2024-11-26 10:32 | disposition home or self-care (01) ==
LOC: HO.MAMMO 10:31
PROVIDERS: PCP Physician Assistant; Visit Provider Physician Assistant
DX: N64.4 Mastodynia (principal)
CPT/HCPCS: 76642; 77062; 77066

== ENCOUNTER 2024-11-26 10:34 | Outpatient (REF) | payer OTHER, SELFPAY ==
--- OUTSIDE RECORDS SUMMARY | 2024-11-26 11:33 | XMS_ITS | Continuity of Care Document ---
Author Organization [facility] Address [address] [address] [place], [place] Phone [phone] Care Team Providers Care Classification Clerk Name Role Phone Marcell Ragland Care Team Information Receiv er Unavailable ANAID ROSALES M.D. Care Team Information Rec eiver Unavailable Marcell Ragland Primary Care Physician Unava ilable Social History Type Date Description Comments Sex Unknown Allergies and adverse reactions Active Allergies Criticality Reaction Severity Comments Date Seasonal Unable to assess criticality 09/05/2016 Medications Active Medications SIG Qnty Indications Ordering Provider Date Apkbawqto241ow Capsules Unknown Djvwuiging6yb Tablets Unknown Albuterol Sulfate ZSZ629(90Base) mcg/Act Aerosol Inhale 2 Puffs By Mouth Every 4 To 6 Hours as Needed For Shortness Of Breath Or Unknown History Medications Ntuvksffog53rq Tablets 5 Tablets By Mout h X 2 Days Then Decrease By 1 Every 2 Days Until Completed Unknown - 05/20/2022 Iwwpwpilmetka425jd Tablets Take 1 Tablet By Mouth 3 Times A Day as Needed For Muscle Spasms Unknown - 10/30/2023 Sumatriptan Sglsswjfh72sp Tablets Take 1 Tablet By Mouth Every Day as Needed Unknown - 10/30/2023 Sedrbljep068qx Tablets Take 1 Tablet By Mouth 3 Times A Day as Needed With Food Unknown - 10/30/2023 Yrsobzmn0rc Tablets Unknown - 10/30/2023 Citalopram Fkdmriwooobs97yq Tablets 1 by mouth every day 90tabs Unknown - 10/30/2023 Kxhiqpxyx265ge Tablets Take 1 Tablet By Mouth 3 Times A Day Unknown - 09/05/2016 Tizanidine HCL2mg Tablets Take 1 To 2 Ta blets By Mouth Every 8 Hours as Needed Unknown - 09/05/2016 Cyclobenzaprine HCL5mg Tablets Take 1 Tablet By Mouth 3 Times A Day as Needed Unknown - 09/05/2016 Chlorhexidine Gluconate0.12% Solution Rinse 1-2 Times Per Day Unknown - 10/08/2017 Fluticasone Tgsxlgtnsb48zeh/Act Suspension Take 1 Winfred In Each Nostril Every Day Unknown - 10/30/2023 Acetaminophen-Codeine #3300-30mg Tablets Take 1 Tablet Every 8 Hours as Needed For Pain May Cause Constipation Unknown - 10/08/2017 Jhrnflmhcw162dt Capsules prn Unkno wn - 05/20/2022 Iophen D-HE190-45it/5ML Liquid Unknown - 09/05/2016 Zhildffuvuv431lf Capsules Unkn own - 09/05/2016 Kutyxnjltg233jx Tablets Unknow n - 10/30/2023
[2024-12-02 10:44] LABS: HPV Genotype 16 Negative (Negative); HPV Genotype 18 Negative (Negative); HPV High Risk Negative (Negative)
== END 2024-11-26 10:35 | disposition home or self-care (01) ==
LOC: HO.LNP 10:34
PROVIDERS: Visit Provider Advanced Practice Midwife
DX: Z01.419 Encounter for gynecological examination (general) (routine) without abnormal findings (principal)
CPT/HCPCS: 87626; 88175